=== PATIENT | female | born 1980 | race Caucasian/White ===

== ENCOUNTER 2017-12-29 14:22 | Outpatient (RCR) | payer MEDICAID ==
[2015-12-07 10:25] VITALS: BMI 31.0
[2017-12-22 08:47] VITALS: BP 133/85
[2017-12-22 09:09] LABS: PLATELET COUNT, AUTOMATED 222 K/uL (150-450)
--- NOTE | 2017-12-24 11:59 | Oncology Note ---
Patient called the clinic today to with the concern that her CA-27-29 tumor marker was increased to 13.1. This was reviewed with patient that it continues to be within the normal limit. Although it is a slight increase at this time I would continue to monitor. Patient is scheduled to see me on Friday and we will evaluate for any evidence of recurrence. She agreed with this plan of care. RADHA FIGUEROA MARKETING PROJECT SPECIALIST-BC, ONC Dec 24, 2017 11:59
[~2017-12-29 14:22] MED LIST: ACE3 PO; ACET-1748 PO; ALBU2SYR19 INH; BAC15T TOP; BACDS PO; BENZ100C4 PO; CEFD300C35 PO; CEPH250C37 PO; CHRO400T2 PO; CLI150 PO; CLOB15CR22 TP; DIC250 PO; ERG400 PO; H2O24; HUMALOG SC; HUMNI SC; IBU800 PO; IBUP-1618 PO; IBUP200C71 PO; INSU100C12 SQ; KET10 PO; LANI SC; LANI SQ; LIS5 PO; LISI-1 PO; LISI-362 PO; LISI5TAB25 PO; LOR5/325 PO; LORA-1455 PO; LORA-629 PO; LOVA20TA99 PO; METF-410 PO; MV/K1COM PO; NOR5/325 PO; POTA20TA94 PO; PRAV10TA45 PO; PRAV20TA65 PO; PREN-85 PO; PROC25SU3 PO; SULF-198 PO; TRI05T TP; UBID100C48 PO; [UNRECOGNIZED DRUG - CODE] IJ; [UNRECOGNIZED DRUG - OTHER] PO
[2017-12-29 14:28] VITALS: BP 131/90
--- NOTE | 2017-12-29 15:02 | ONC Progress Note - NP.Halsey ---
Patient History Date of Service Dec 29, 2017 Reason For Visit/HPI Patient is seen in the clinic today for follow-up of her breast cancer. Patient had labs reviewed today. Tumor marker is currently 13.1 which is a slight elevation from previous but well within the normal limits. Overall patient is feeling very well. She reports that she does a chest wall exam frequently and has not noticed any changes or palpable nodes. Patient continues to have an insulin pump and believes that her blood sugars have been stable over the last month. She is try to lose some weight but has not been able to. 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 Patient is a single mother with 3 teenage children. She reports following with her primary provider for a [facility] [employer] annual Pap smear which was normal. 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 PRESENTATION Palpable lump of the left breast. DIAGNOSTIC EVALUATION Bilateral diagnostic mammogram done on August 11, 2015 which revealed spiculated mass with pleomorphic calcification approximately at the 10 o'clock position of the left breast. PROCEDURES 1. Needle localization lumpectomy of the left breast mass done on August 29, 2015. The pathology came back positive for two masses. The anterior mass is 0.9 cm and the pathology was positive for invasive ductal carcinoma with high grade DCIS with comedo necrosis while the posterior mass was 3.1 cm with invasive ductal carcinoma, grade II-III. ER was negative. MI was negative. HER2/gloria was 3+ by immunohistochemistry which is positive. Ki-67 was 11.5%. 2. Left breast mastectomy with left sentinel lymph node biopsy and right simple mastectomy done on September 12, 2015. The left mastectomy specimen revealed residual invasive ductal carcinoma and high grade DCIS completely excised. Two sentinel lymph nodes were negative for metastasis. The right simple mastectomy was unremarkable with no evidence of malignancy. STAGE Stage IIA ([id number]) TREATMENT The patient started treatment with adjuvant chemotherapy with dose-dense AC regimen with Adriamycin and cyclophosphamide on October 16, 2015. The patient completed four cycles of dose-dense AC on November 27, 2014. The patient started treatment with Herceptin and capecitabine on December 25, 2015. The patient completed nine cycles of oral capecitabine on June 2016. The patient completed 18 cycles of every 3-weeks of Herceptin to finish one year of adjuvant Herceptin therapy December 2016. Psychosocial History Social History Patient is a single mother with 3 teenage children. 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 Alcohol History She denies abuse Recreational Drug History She denies use Smoking History: Yes Smoking Status: Former Smoker Medications and Allergies Reported Medications Pravastatin Sodium (PRAVACHOL) 20 Mg Tablet, 20 MG PO QDAY, TAB 09/26/17 Ibuprofen (IBUPROFEN) 200 Mg Capsule, 1 CAP PO Q6H, CAPSULE 06/27/17 Metformin Hcl (METFORMIN HCL) 500 Mg Tablet, 2 TAB PO QDAY, TAB 03/28/17 Lisinopril (LISINOPRIL) 5 Mg Tablet, 5 MG PO QDAY, TAB 05/02/16 Vitamin D (VITAMIN D) 400 Intlu Tab, 400 INTLU PO DAILY, TAB 12/07/15 Albuterol Sulf (ALBUTEROL SULFATE) 2 Mg/5 Ml Syrp, 2 MG INH Y for SHORTNESS OF BREATH 12/07/15 Mv/K/O3/D3/Mag/C/Ala/Grn T/Chr (DIABETES HEALTH PACK) 1 Each Combo..pkg, 1 EACH PO DAILY 12/07/15 Loratadine (LORATADINE) 10 Mg Tablet, 10 MG PO QAM 08/25/15 Insulin Human Lispro (Humalog) 100 U/Ml Soln, SC, 0 Refills INSULIN PUMP 05/27/10 Discontinued Scripts Benzonatate 100 Mg Cap (TESSALON PERLE 100 MG CAP) 100 Mg Capsule, 100 MG PO TID , #30 CAP Prov:RADHA FIGUEROA FIRE BOSS-BC, ONC 07/23/17 Sulfamethoxazole/Trimet 800-160 Mg Tab (BACTRIM DS TABLET) 1 Each Tablet, 1 TAB PO Q12H for 10 Days, #20 TAB Prov:RADHA FIGUEROA FIRE BOSS-BC, ONC 07/23/17 Allergies: Coded Allergies: No Known Drug Allergies (Verified , 08/06/16) Review of System/Physical Exam Review of Systems All Systems Reviewed/Normal: Yes, Except as Noted Respiratory: Positive for Cough (occasional cough which is nonproductive) Physical Exam Vital Signs Temperature: 98.3 Pulse: 112 BP Systolic: 131 BP Diastolic: 90 Respiratory Rate: 16 O2 SAT: 92 O2 Delivery: Room Air Height (inches) 66.00 Weight lb: 228 Weight oz: 6.0 Weight Kg (Brandon): [phone] Pain: 0 ECOG Score: 0 General: Stable, Well Developed, Well Nourished, Not In Acute Distress HEENT: No Trauma, No Conjunctivitis, No Icterus, No Mucositis, No Oral Thrush Neck: Supple Lungs: Clear to Auscultation Heart: Regular Rate, Regular Rhythm, No Gallops Abdomen: Soft and Nontender, No Hepatosplenomegaly, No Masses, Other (bowel sounds are active abdominal wall positive for insulin monitor and insulin pump ) Extremities: No Cyanosis, No Clubbing, No Edema Lymphadenopathy: No Cervical, No Subclavicular, No Axillary Psychiatric: Mood appears normal, Affect appears normal Skin: No Skin Rashes, No Bruising, No Purpura Diagnostic Studies Diagnostic Studies Laboratory Labs reviewed with patient today Laboratory Tests 12/22/17 08:50 Laboratory Tests 12/22/17 08:50: White Blood Count 12.7, Red Blood Count 5.64, Hemoglobin 15.8, Hematocrit 45.3, Mean Corpuscular Volume 80.4, Mean Corpuscular Hemoglobin 28.0, Mean Corpuscular Hemoglobin Concent 34.8, Red Cell Distribution Width 13.9, Platelet Count 222, Mean Platelet Volume 11.1, Neutrophils (%) (Auto) 73.4, Lymphocytes ( %) (Auto) 17.5, Monocytes (%) (Auto) 5.8, Eosinophils (%) (Auto) 2.7, Basophils (%) (Auto) 0.6, Nucleated RBC Relative Count (auto) 0.1, Neutrophils # (Auto) 9.3, Lymphocytes # (Auto) 2.2, Monocytes # (Auto) 0.7, Eosinophils # (Auto) 0.3 , Basophils # (Auto) 0.1, Nucleated RBC Absolute Count (auto) 0.01, Sodium Level 136, Potassium Level 3.7, Chloride Level 102, Carbon Dioxide Level 21, Blood Urea Nitrogen 13, Creatinine 0.70, Glomerular Filtration Rate Calc > 60.0 , Random Glucose 199, Calcium Level 9.1, Total Bilirubin 0.7, Aspartate Amino Transf (AST/SGOT) 22, Alanine Aminotransferase (ALT/SGPT) 32, Alkaline Phosphatase 85, Total Protein 6.9, Albumin 3.8, CA 27-29 Antigen Serial Monitoring 13.1 Assessment and Plan Assessment & Plan 1. Stage IIA (pT2 pN0 cM0) left invasive ductal carcinoma status post wide localization lumpectomy done on September 01, 2015, followed by bilateral mastectomies with left sentinel lymph node biopsy done September 07, 2015. Final pathology was positive for two masses in the left breast. The largest was 3.5 cm and the smallest was 0.9 cm. Tumor was grade 2/3 ER/MI negative, HER2/gloria positive for immunohistochemistry. Ki-67 was 11.5%. The patient started treatment with adjuvant chemotherapy with dose-dense AC regimen with Adriamycin and cyclophosphamide on October 16, 2015. The patient completed four cycles of dose-dense AC on November 27, 2014. The patient started treatment with Herceptin and capecitabine on December 25, 2015. The patient completed nine cycles of oral capecitabine on June 2016. The patient completed 18 cycles of every 3-weeks of Herceptin to finish one year of adjuvant Herceptin therapy December 2016. She continues to be in complete remission with no evidence of recurrent disease on diagnostic labs or exam. Her tumor marker with CA 27-29 was previously 10.9 and currently 13.1. She will follow in three months with CBC, chem panel and CA 27-29. 2. Diabetic. Patient is on insulin pump which is managed by primary 3. Hypertension, on treatment and management by primary. 4. Hyperlipidemia, managed by primary 5. Leucocytosis. Patient continues to have an elevated white cell count without evidence of infection. It has been elevated to 1600 which was noted in 2016 and more recently at 12.7. Patient will be monitored. 6. Patient continue to have monthly menses and recent Pelvic exam with Pap smear was noted to be unremarkable- completed by primary care provider. I personally spent a total of 20 minutes. Of that 15 minutes was counseling/ coordination of patient's care. See my note above for details. Copies to: RAINER DEVINE NANCY J FNP-BC, ONC Dec 29, 2017 15:02
== END 2018-03-19 ==
LOC: ONC 14:22
PROVIDERS: ATTEND Nurse Practitioner Family
DX: Z85.3 Personal history of malignant neoplasm of breast (principal); I10 Essential (primary) hypertension; E78.00 Pure hypercholesterolemia, unspecified; D72.829 Elevated white blood cell count, unspecified; E10.8 Type 1 diabetes mellitus with unspecified complications; Z79.4 Long term (current) use of insulin; Z96.41 Presence of insulin pump (external) (internal); Z87.891 Personal history of nicotine dependence
CPT/HCPCS: 36415; 85025; 86300; G0463; 82040; 82247; 82310; 82374; 82435; 82565; 82947; 84075; 84132; 84155; 84295; 84450; 84460; 84520; 99212

== ENCOUNTER → 2018-03-11 | Outpatient (CLI) | payer MEDICAID ==
[2015-12-07 10:25] VITALS: BMI 31.0
[~2018-03-11] MED LIST changes: -METF-410 PO; +METF-411 PO
[2018-03-11 14:48] LABS: PLATELET COUNT, AUTOMATED 242 K/uL (150-450)
[2018-03-11 15:17] LABS: LDL CHOLESTEROL 72 mg/dl
== END ==
LOC: LAB 14:27
PROVIDERS: ATTEND Nurse Practitioner Family
DX: E10.9 Type 1 diabetes mellitus without complications (principal); E78.5 Hyperlipidemia, unspecified; I10 Essential (primary) hypertension
CPT/HCPCS: 36415; 82040; 82247; 82310; 82374; 82435; 82465; 82565; 82947; 83036; 83718; 84075; 84132; 84155; 84295; 84450; 84460; 84478; 84520; 85025

== ENCOUNTER 2018-03-26 08:01 | Outpatient (RCR) | payer MEDICAID ==
[2015-12-07 10:25] VITALS: Wt 102.0 kg
[2018-03-23 08:28] LABS: PLATELET COUNT, AUTOMATED 199 K/uL (150-450)
[~2018-03-26 08:01] MED LIST changes: +IBUP-136 PO; -IBUP200C71 PO
[2018-03-26 08:19] VITALS: BP 145/89
--- NOTE | 2018-03-26 15:28 | ONCOLOGY FOLLOW UP NOTE ---
EVENT DATE: March 26, 2018 DIAGNOSES 1. Stage IIA (pt2 pN0 cM0) left breast invasive ductal carcinoma. 2. Type 2 diabetes mellitus on insulin pump. 3. Hypertension. 4. Hyperlipidemia. CHIEF COMPLAINT The patient is here today for followup of her left breast cancer. ONCOLOGY HISTORY The patient is a 37-year-old premenopausal woman. PRESENTATION Palpable lump of the left breast. DIAGNOSTIC EVALUATION Bilateral diagnostic mammogram done on August 11, 2015 which revealed spiculated mass with pleomorphic calcification approximately at the 10 o'clock position of the left breast. PROCEDURES 1. Needle localization lumpectomy of the left breast mass done on August 29, 2015. The pathology came back positive for two masses. The anterior mass is 0.9 cm and the pathology was positive for invasive ductal carcinoma with high grade DCIS with comedo necrosis while the posterior mass was 3.1 cm with invasive ductal carcinoma, grade II-III. ER was negative. CO was negative. HER2/gloria was 3+ by immunohistochemistry which is positive. Ki-67 was 11.5%. 2. Left breast mastectomy with left sentinel lymph node biopsy and right simple mastectomy done on September 12, 2015. The left mastectomy specimen revealed residual invasive ductal carcinoma and high grade DCIS completely excised. Two sentinel lymph nodes were negative for metastasis. The right simple mastectomy was unremarkable with no evidence of malignancy. STAGE Stage IIA ([id number]) TREATMENT The patient started treatment with adjuvant chemotherapy with dose-dense AC regimen with Adriamycin and cyclophosphamide on October 16, 2015. The patient completed four cycles of dose-dense AC on November 27, 2014. The patient started treatment with Herceptin and capecitabine on December 25, 2015. The patient completed nine cycles of capecitabine on June 2016. The patient completed 18 cycles of 3-weekly Herceptin to finish one year of adjuvant Herceptin therapy December 2016. HISTORY OF PRESENT ILLNESS Patient is here today for followup of her left breast cancer. She is doing fine currently. She is totally asymptomatic except for dry cough from lisinopril therapy. Other than that she is really doing very well. She denies any hot flashes. PAST MEDICAL HISTORY 1. Type 1 diabetes mellitus on insulin pump. 2. Hypercholesterolemia. 3. Hypertension. PAST SURGICAL HISTORY 1. Wire localization lumpectomy on August 29, 2015. 2. Double mastectomy with left sentinel lymph node biopsy done on September 12, 2015. SOCIAL HISTORY The patient is . She has three children, two daughters and one son. She works in food sales clerk. She denies any abuse of tobacco, alcohol or drugs. FAMILY HISTORY Maternal aunt had breast cancer in her fifties. Half sister from the maternal side had breast cancer in her forties. CURRENT MEDICATIONS 1. Potassium chloride 20 mEq daily. 2. Alpha-lipoic acid 1 tablet daily. 3. CoQ10 at 100 mg daily. 4. Vitamin D 400 IU daily. 5. Albuterol 2 mg inhalation as needed for shortness of breath. 6. Diabetes Health Pack 1 each of combo-pack daily. 7. Chromium 400 mcg daily. 8. Compazine 25 mg suppository as needed for nausea. 9. Ativan 0.5 mg tablet q.4-6h. p.r.n. for nausea and vomiting. 10. Loratadine 10 mg daily. 11. Lovastatin 20 mg at bedtime. 12. Insulin subcutaneously by pump. ALLERGIES No known drug allergies. REVIEW OF SYSTEMS CONSTITUTIONAL: The patient has occasional hot flashes. HEENT: Ears: No tinnitus or hearing problem. Nose: No nasal discharge or epistaxis. Throat: No sore throat or mouth ulcers. Eyes: No diplopia or visual changes. RESPIRATORY: Patient has dry cough from lisinopril therapy. CARDIOVASCULAR: No chest pain, orthopnea, or paroxysmal nocturnal dyspnea (PND) . No edema. No palpitations. GASTROINTESTINAL: No nausea or vomiting. No diarrhea or constipation. No change in bowel movements. No heartburn or swallowing difficulties. No abdominal pain. No jaundice. No hematemesis, melena or rectal bleeding. GENITOURINARY: No hematuria or dysuria. MUSCULOSKELETAL: No pain in the muscles, joints or bones. NEUROLOGICAL: She has tingling and numbness in the hands and feet. HEMATOLOGIC/LYMPHATIC: No bleeding or easy bruising. No weakness or fatigue. No enlarged lymph nodes. SKIN: No skin rash or lumps. PSYCHIATRIC: No anxiety or depression. PHYSICAL EXAMINATION GENERAL: Looks stable. Well-developed, well-nourished, and in no acute distress. VITAL SIGNS: Blood pressure 145/89, pulse 108 per minute, respirations 16 per minute, temperature 99, pulse ox 92% on room air. HEENT: Head: Atraumatic. No sinus tenderness to palpation. Eyes: No icterus or conjunctivitis. Mouth and throat: No oral thrush or mucositis. NECK: Supple. No cervical or supraclavicular lymphadenopathy. LUNGS: Clear to auscultation and percussion bilaterally. HEART: Regular rate and rhythm. No gallops, murmurs, clicks or rubs. ABDOMEN: Soft and lax. No tenderness. No hepatosplenomegaly. No masses. EXTREMITIES: There is mild swelling and tenderness in the right big toe, suggestive of gout. LYMPHATICS: No peripheral lymphadenopathy. NEUROLOGICAL: Conscious, alert and oriented times three. No focal motor or sensory deficits. PSYCHIATRIC: Mood and affect appear normal. SKIN: The skin over the mastectomy scar showed small cystic it looks like infection of the skin. DIAGNOSTIC DATA CBC showed a white count of 14.3, hemoglobin 15.2, hematocrit 42.7, platelets 199,000. Chem panel totally normal except sodium 136, carbon dioxide 19, blood sugar 209. CA 27-29 is normal at 8.3. ASSESSMENT 1. Stage IIA (pT2 pN0 cM0) left invasive ductal carcinoma status post wide localization lumpectomy done on September 01, 2015, followed by bilateral mastectomies with left sentinel lymph node biopsy done September 07, 2015. Final pathology was positive for two masses in the left breast. The largest was 3.5 cm and the smallest was 0.9 cm. Tumor was grade 2/3 ER/CO negative, HER2/gloria positive for immunohistochemistry. Ki-67 was 11.5%. Patient received four cycles of adjuvant dose-dense AC with adriamycin and cyclophosphamide between December 25, 2015 through June 2016, and she also received Herceptin every three weeks, and continued one year of adjuvant Herceptin therapy, completed December 2016. Patient received also nine cycles of capecitabine completed June 2016 as the patient refused Taxol therapy because of Decadron use because of her poor diabetic control with steroids. She is currently in complete remission. Her CA 27-29 is normal at 8.3. I am planning to continue followup. I will see her again in three months with CBC, chem panel and CA 27- 29. 2. Chronic cough from lisinopril therapy. 3. Type 1 diabetes mellitus on insulin pump. 4. Hypertension, on treatment. 5. Hyperlipidemia, on treatment. PLAN 1. Continue followup. 2. Patient to return in three months with CBC, chem panel, CA 27-29. 3. Patient is to contact us for any new concern or complaints. [facility]
== END 2018-06-18 ==
LOC: ONC 08:01
PROVIDERS: ATTEND Internal Medicine Hematology
DX: Z85.3 Personal history of malignant neoplasm of breast (principal); Z92.21 Personal history of antineoplastic chemotherapy; E11.9 Type 2 diabetes mellitus without complications; Z79.4 Long term (current) use of insulin; Z96.41 Presence of insulin pump (external) (internal); I10 Essential (primary) hypertension; E78.5 Hyperlipidemia, unspecified; Z79.899 Other long term (current) drug therapy; R05 Cough
CPT/HCPCS: 36415; 85025; 86300; G0463; 82040; 82247; 82310; 82374; 82435; 82565; 82947; 84075; 84132; 84155; 84295; 84450; 84460; 84520; 99212

== ENCOUNTER 2018-06-26 08:09 | Outpatient (RCR) | payer MEDICAID ==
[2015-12-07 10:25] VITALS: Wt 105.6 kg
[2018-06-22 08:36] VITALS: BP 146/90
[2018-06-22 08:47] LABS: PLATELET COUNT, AUTOMATED 199 K/uL (150-450)
[2018-06-26 08:31] VITALS: BP 146/93
--- NOTE | 2018-06-26 14:28 | EL-TARABILY ONCOLOGY NOTE ---
EVENT DATE: June 26, 2018 DIAGNOSES 1. Stage IIA ([id number]) left breast invasive ductal carcinoma. 2. Type 2 diabetes mellitus, on insulin pump. 3. Hypertension. 4. Hyperlipidemia. CHIEF COMPLAINT The patient is here today for followup of her left breast cancer. ONCOLOGY HISTORY The patient is a 38-year-old premenopausal woman. PRESENTATION Palpable lump of the left breast. DIAGNOSTIC EVALUATION Bilateral diagnostic mammogram done on August 11, 2015, which revealed spiculated mass with pleomorphic calcification approximately at the 10 o'clock position of the left breast. PROCEDURES 1. Needle localization lumpectomy of the left breast mass done on August 29, 2015. The pathology came back positive for two masses. The anterior mass was 0.9 cm, and the pathology was positive for invasive ductal carcinoma with high- grade DCIS with comedo necrosis, while the posterior mass was 3.1 cm with invasive ductal carcinoma, grade 2/3. ER was negative. PA was negative. HER2/ gloria was 3+ by immunohistochemistry which is positive. Ki-67 was 11.5%. 2. Left breast mastectomy with left sentinel lymph node biopsy and right simple mastectomy done on September 12, 2015. The left mastectomy specimen revealed residual invasive ductal carcinoma and high-grade DCIS, completely excised. Two sentinel lymph nodes were negative for metastasis. The right simple mastectomy was unremarkable with no evidence of malignancy. STAGE Stage IIA ([id number]) TREATMENT The patient started treatment with adjuvant chemotherapy with dose-dense AC regimen with Adriamycin and cyclophosphamide on October 16, 2015. The patient completed four cycles of dose-dense AC on November 27, 2014. The patient started treatment with Herceptin and capecitabine on December 25, 2015. The patient completed nine cycles of capecitabine in June 2016. The patient completed 18 cycles of 3-weekly Herceptin to finish one year of adjuvant Herceptin therapy December 2016. HISTORY OF PRESENT ILLNESS Patient is here today for followup of her left breast cancer. She is doing fine currently. She has some dry cough occasionally, but other than that, she is really doing very well. Denies any hot flashes. PAST MEDICAL HISTORY 1. Type 1 diabetes mellitus, on insulin pump. 2. Hypercholesterolemia. 3. Hypertension. PAST SURGICAL HISTORY 1. Wire localization lumpectomy on August 29, 2015. 2. Double mastectomy with left sentinel lymph node biopsy done on September 12, 2015. SOCIAL HISTORY The patient is . She has three children, two daughters and one son. She works in seafood packer. She denies any abuse of tobacco, alcohol, or drugs. FAMILY HISTORY Maternal aunt had breast cancer in her 50s. Half sister from the maternal side had breast cancer in her 40s. CURRENT MEDICATIONS 1. Potassium chloride 20 mEq daily. 2. Alpha-lipoic acid 1 tablet daily. 3. CoQ10 at 100 mg daily. 4. Vitamin D 400 IU daily. 5. Albuterol 2 mg inhalation as needed for shortness of breath. 6. Diabetes Health Pack 1 each of combo-pack daily. 7. Chromium 400 mcg daily. 8. Compazine 25 mg suppository as needed for nausea. 9. Ativan 0.5 mg tablet q.4-6h. p.r.n. for nausea and vomiting. 10. Loratadine 10 mg daily. 11. Lovastatin 20 mg at bedtime. 12. Insulin subcutaneously by pump. ALLERGIES No known drug allergies. REVIEW OF SYSTEMS CONSTITUTIONAL: The patient has occasional hot flashes. HEENT: Ears: No tinnitus or hearing problem. Nose: No nasal discharge or epistaxis. Throat: No sore throat or mouth ulcers. Eyes: No diplopia or visual changes. RESPIRATORY: Patient has some dry cough occasionally. CARDIOVASCULAR: No chest pain, orthopnea, or paroxysmal nocturnal dyspnea (PND) . No edema. No palpitations. GASTROINTESTINAL: No nausea or vomiting. No diarrhea or constipation. No change in bowel movements. No heartburn or swallowing difficulties. No abdominal pain. No jaundice. No hematemesis, melena or rectal bleeding. GENITOURINARY: No hematuria or dysuria. MUSCULOSKELETAL: No pain in the muscles, joints or bones. NEUROLOGICAL: She has tingling and numbness in the hands and feet. HEMATOLOGIC/LYMPHATIC: No bleeding or easy bruising. No weakness or fatigue. No enlarged lymph nodes. SKIN: No skin rash or lumps. PSYCHIATRIC: No anxiety or depression. PHYSICAL EXAMINATION GENERAL: Looks stable. Well developed, well nourished, and in no acute distress. VITAL SIGNS: Blood pressure 146/93, pulse 97 per minute, respirations 16 per minute, temperature 98.8, pulse ox 94% on room air. HEENT: Head: Atraumatic. No sinus tenderness to palpation. Eyes: No icterus or conjunctivitis. Mouth and throat: No oral thrush or mucositis. NECK: Supple. No cervical or supraclavicular lymphadenopathy. LUNGS: Clear to auscultation and percussion bilaterally. HEART: Regular rate and rhythm. No gallops, murmurs, clicks, or rubs. ABDOMEN: Soft and lax. No tenderness. No hepatosplenomegaly. No masses. EXTREMITIES: There is mild swelling and tenderness in the right big toe, suggestive of gout. LYMPHATICS: No peripheral lymphadenopathy. NEUROLOGICAL: Conscious, alert, and oriented times three. No focal motor or sensory deficits. PSYCHIATRIC: Mood and affect appear normal. SKIN: The skin over the mastectomy scar shows small cyst. It looks like infection of the skin. DIAGNOSTIC DATA CBC showed a white count 12.5, hemoglobin 15, hematocrit 42.5, platelets 199, 000. Chem panel totally normal except carbon dioxide 21, blood sugar 229. CA 27-29 is normal at 10.4. ASSESSMENT 1. Stage IIA ([id number]) left invasive ductal carcinoma, status post wide localization lumpectomy done September 01, 2015, followed by bilateral mastectomies with left sentinel lymph node biopsy done September 07, 2015. Final pathology was positive for two masses in the left breast. The largest was 3.5 cm, and the smallest was 0.9 cm. Tumor was grade 2/3, ER/PA negative, HER2/gloria positive by immunohistochemistry. Ki-67 was 11.5%. Patient received four cycles of adjuvant dose-dense AC with Adriamycin and cyclophosphamide between December 25, 2015, through June 2016. She also received Herceptin every three weeks and continued one year of adjuvant Herceptin therapy, completed December 2016. Patient received also nine cycles of capecitabine, completed June 2016 , as the patient refused Taxol therapy because of Decadron use because of her poor diabetic control with steroids. She is currently in complete remission. Her CA 27-29 is 10.4, which is normal. She is about to finish three years since her diagnosis, and I am planning to her, next visit in four months with CBC, chemistry panel, CA 27-29. 2. Type 1 diabetes mellitus, on insulin pump. 3. Hypertension, on treatment. 4. Hyperlipidemia, on treatment. PLAN 1. Continue followup. 2. Patient to return in four months with CBC, chem panel, CA 27-29. 3. Patient to contact us for any new concerns or complaints. [facility]
== END 2018-07-17 11:07 | disposition home or self-care (01) ==
LOC: ONC 08:09
PROVIDERS: ATTEND Internal Medicine Hematology
DX: Z85.3 Personal history of malignant neoplasm of breast (principal); Z92.21 Personal history of antineoplastic chemotherapy; E11.9 Type 2 diabetes mellitus without complications; Z79.4 Long term (current) use of insulin; Z96.41 Presence of insulin pump (external) (internal); I10 Essential (primary) hypertension; E78.5 Hyperlipidemia, unspecified; Z79.899 Other long term (current) drug therapy; R05 Cough
CPT/HCPCS: 36415; 85025; 86300; G0463; 82040; 82247; 82310; 82374; 82435; 82565; 82947; 84075; 84132; 84155; 84295; 84450; 84460; 84520; 99212

== ENCOUNTER 2019-02-26 08:08 | Outpatient (RCR) | payer SELFPAY ==
[2015-12-07 10:25] VITALS: Wt 109.9 kg
[2019-02-22 14:20] VITALS: BP 119/82
[2019-02-22 14:36] LABS: PLATELET COUNT, AUTOMATED 211 K/uL (150-450)
[~2019-02-26 08:08] MED LIST changes: -METF-411 PO; +METF-450 PO
[2019-02-26 08:27] VITALS: BP 127/91
--- NOTE | 2019-02-26 21:25 | [facility] ONCOLOGY NOTE ---
EVENT DATE: February 26, 2019 DIAGNOSES 1. Stage IIA (pT2 pN0 cM0) left breast invasive ductal carcinoma. 2. Type 2 diabetes mellitus, on insulin pump. 3. Hypertension. 4. Hyperlipidemia. CHIEF COMPLAINT The patient is here today for followup of her left breast cancer. ONCOLOGY HISTORY The patient is a 38-year-old premenopausal woman. PRESENTATION Palpable lump of the left breast. DIAGNOSTIC EVALUATION Bilateral diagnostic mammogram done on August 11, 2015, which revealed spiculated mass with pleomorphic calcification approximately at the 10 o'clock position of the left breast. PROCEDURES 1. Needle localization lumpectomy of the left breast mass done on August 29, 2015. The pathology came back positive for two masses. The anterior mass was 0.9 cm, and the pathology was positive for invasive ductal carcinoma with high- grade DCIS with comedo necrosis, while the posterior mass was 3.1 cm with invasive ductal carcinoma, grade 2/3. ER was negative. OH was negative. HER2/gloira was 3+ by immunohistochemistry, which is positive. Ki-67 was 11.5%. 2. Left breast mastectomy with left sentinel lymph node biopsy and right simple mastectomy done on September 12, 2015. The left mastectomy specimen revealed residual invasive ductal carcinoma and high-grade DCIS completely excised. Two sentinel lymph nodes were negative for metastasis. The right simple mastectomy was unremarkable with no evidence of malignancy. STAGE Stage IIA (pT2 pN0 cM0). TREATMENT The patient started treatment with adjuvant chemotherapy with dose-dense AC regimen with Adriamycin and cyclophosphamide on October 16, 2015. The patient completed four cycles of dose-dense AC on November 27, 2014. The patient started treatment with Herceptin and capecitabine on December 25, 2015. The patient completed nine cycles of capecitabine in June 2016. The patient completed 18 cycles of three weekly Herceptin to finish one year of adjuvant Herceptin therapy December 2016. HISTORY OF PRESENT ILLNESS Patient is here today for followup of her left breast cancer. She is doing fine currently. She is complaining of having significant hot flashes lately. She has some cough with a little phlegm. She has also some pain in her fingers. PAST MEDICAL HISTORY 1. Type 1 diabetes mellitus, on insulin pump. 2. Hypercholesterolemia. 3. Hypertension. PAST SURGICAL HISTORY 1. Wire localization lumpectomy on August 29, 2015. 2. Double mastectomy with left sentinel lymph node biopsy done on September 12, 2015. SOCIAL HISTORY The patient is . She has three children, two daughters and one son. She works in prepared foods service team member. She denies any abuse of tobacco, alcohol, or drugs. FAMILY HISTORY Maternal aunt had breast cancer in her 50s. Half sister from the maternal side had breast cancer in her 40s. CURRENT MEDICATIONS 1. Potassium chloride 20 mEq daily. 2. Alpha-lipoic acid 1 tablet daily. 3. CoQ10 at 100 mg daily. 4. Vitamin D 400 International Units daily. 5. Albuterol 2 mg inhalation as needed for shortness of breath. 6. Diabetes Health Pack one each of combo-pack daily. 7. Chromium 400 mcg daily. 8. Compazine 25 mg suppository as needed for nausea. 9. Ativan 0.5 mg tablet q.4-6 hours p.r.n. for nausea and vomiting. 10. Loratadine 10 mg daily. 11. Lovastatin 20 mg at bedtime. 12. Insulin subcutaneously by pump. ALLERGIES No known drug allergies. REVIEW OF SYSTEMS CONSTITUTIONAL: No appetite or weight change. Patient has some hot flashes. No fever, chills, or sweating. No recent infection. HEENT: Ears: No tinnitus or hearing problem. Nose: No nasal discharge or epistaxis. Throat: No sore throat or mouth ulcers. Eyes: No diplopia or visual changes. RESPIRATORY: No shortness of breath. She has cough with expectoration. No hemoptysis. CARDIOVASCULAR: No chest pain, orthopnea, or paroxysmal nocturnal dyspnea (PND). No edema. No palpitations. GASTROINTESTINAL: No nausea or vomiting. No diarrhea or constipation. No change in bowel movements. No heartburn or swallowing difficulties. No abdominal pain. No jaundice. No hematemesis, melena, or rectal bleeding. GENITOURINARY: No hematuria or dysuria. MUSCULOSKELETAL: She has pain in her fingers. NEUROLOGIC: No tingling or numbness in the hands or feet. No headaches or convulsions. HEMATOLOGIC/LYMPHATIC: No bleeding or easy bruising. No weakness or fatigue. No enlarged lymph nodes. SKIN: No skin rash or lumps. PSYCHIATRIC: No anxiety or depression. PHYSICAL EXAMINATION GENERAL: Looks stable. Well developed, well nourished, and in no acute distress. VITAL SIGNS: Blood pressure 127/91, pulse 102 per minute, respirations 16 per minute, temperature 98.2, pulse ox 90% on room air. HEENT: Head: Atraumatic. No sinus tenderness to palpation. Eyes: No icterus or conjunctivitis. Mouth and Throat: No oral thrush or mucositis. NECK: Supple. No cervical or supraclavicular lymphadenopathy. LUNGS: Clear to auscultation and percussion bilaterally. HEART: Regular rate and rhythm. No gallops, murmurs, clicks, or rubs. ABDOMEN: Soft and lax. No tenderness. No hepatosplenomegaly. No masses. EXTREMITIES: No cyanosis, clubbing, or edema. LYMPHATICS: No peripheral lymphadenopathy. NEUROLOGICAL: Conscious, alert, and oriented times three. No focal motor or sensory deficits. PSYCHIATRIC: Mood and affect appear normal. SKIN: No skin rash, bruise, or purpuric eruption. DIAGNOSTIC DATA CBC showed a white count 15.5, hemoglobin 14.9, hematocrit 44.4, platelets 211,000. Chem panel totally normal except total bilirubin 0.1. CA27.29 is normal at 13.7. ASSESSMENT 1. Stage IIA (pT2 pN0 cM0) left invasive ductal carcinoma, status post wide localization lumpectomy done September 01, 2015, followed by bilateral mastectomies and left sentinel lymph node biopsy done September 07, 2015. Final pathology was positive for two masses in the left breast. The largest was 3.5 cm, and the smallest was 0.9 cm. Tumor was grade 2/3, ER/OH negative, HER2/gloria positive by immunohistochemistry. Ki-67 was 11.5%. Patient received four cycles of adjuvant dose-dense AC with Adriamycin and cyclophosphamide between December 25, 2015, through June 2016. She also received Herceptin every three weeks and continued one year of adjuvant Herceptin therapy, completed December 2016. She received nine cycles of capecitabine, completed June 2016, as the patient refused Taxol therapy because of Decadron use because of her poor diabetic control with steroids. She is currently in complete remission. Her CA27.29 remains normal at 13.7. I am planning to continue followup. I will see her again in four months with CBC, chemistry panel, and CA27.29. 2. Type 1 diabetes mellitus, on insulin pump. 3. Hypertension, on treatment. 4. Hyperlipidemia, on treatment. PLAN 1. Continue followup. 2. Patient to return in four months with CBC, chem panel, CA27.29. 3. Patient to contact us for any new concerns or complaints. MTDD
== END 2019-03-10 12:16 | disposition home or self-care (01) ==
LOC: ONC 08:08
PROVIDERS: ATTEND Internal Medicine Hematology
DX: C50.212 Malignant neoplasm of upper-inner quadrant of left female breast (principal); Z17.1 Estrogen receptor negative status [ER-]; E10.9 Type 1 diabetes mellitus without complications; Z96.41 Presence of insulin pump (external) (internal); I10 Essential (primary) hypertension; E78.5 Hyperlipidemia, unspecified
CPT/HCPCS: 36415; 82040; 82247; 82310; 82374; 82435; 82565; 82947; 84075; 84132; 84155; 84295; 84450; 84460; 84520; 85025; 86300; 99212